=== PATIENT | male | born 1960 | race Caucasian/White ===

== ENCOUNTER 2023-02-21 10:43 | Emergency (ER) | payer BC, SELFPAY ==
[2023-02-21 10:45] VITALS: BP 163/92; PULSE 78; RESP 18; TEMP 36.6; O2SAT 96; BMI 26.4
--- NOTE | 2023-02-21 10:51 | EDS_ITS ---
HPI History of Present Illness Chief Complaint: Chest Pain Informant: patient Onset/Context/Timing Onset: Today Activity at onset: gradual Timing: Intermittent Quality: Positive for Tightness and - (Tingling) Location: Substernal, Right Parasternal, Left Parasternal, Right Chest and Left Chest Worsened By: Nothing Relieved By: Nothing Associated Symptoms: Negative for Nausea, Vomiting, Diaphoresis, Dyspnea, Cough, Fever, Lightheadedness, Acid Reflux or Palpitations Narrative Narrative: Patient presents with chest pain that began today. Patient states it began approximately 2 to 3 hours prior to arrival. Patient states he has had intermit tent pain for the past couple days. Patient states he checked his blood pressure while he was at the dentist office and noted that it was high. Patient states he is checked it at home and noted that it was still high. Patient states he made an appointment with a primary care physician for next week. Patient denies any nausea or vomiting. Patient denies any cough or shortness of breath. Patient denies any lightheadedness or dizziness. CVD Risk Factors: Positive for Hypertension; Negative for Diabetes, Hypercholesterolemia, Family History 1' </=55 or Smoking PE Risk Factors: Negative for Recent Travel/Surgery, Recent Immobilization, Prior DVT or PE or Cancer PFSH PFSH Medical History no medical history no medical history Home Medications NK 02/21/23 [History Last Taken Unknown] Allergy/AdvReac Type Severity Reaction Status Date / Time No Known Allergies Allergy Verified 02/21/23 10:44 Surgical History no surgical history no surgical history Social History Smoking Status: Never smoker ROS ROS ED Constitutional Constitutional ED: Denies chills or fever(s) Eyes Eyes: Denies blurry vision or change in vision ENT ENT ED: Denies rhinorrhea or sore throat Cardiovascular Cardiovascular: Denies chest pain or palpitations Respiratory/Chest Respiratory/Chest: Denies cough or dyspnea Gastrointestinal Gastrointestinal: Denies nausea or vomiting Genitourinary Genitourinary ED: Denies dysuria or hematuria Musculoskeletal Musculoskeletal: Denies back pain or neck pain Integumentary Denies abscess or rash Neurologic Neurologic: Denies headache(s) or weakness Allergic/Immunologic Allergic/Immunologic ED: Denies mouth swelling or urticaria EXAM Physical Exam Const Vital Signs: 02/21/23 10:45 02/21/23 10:50 02/21/23 11:11 Temperature 98 F Temperature Source Temporal Pulse Rate 78 Respiratory Rate 18 Respiratory Effort Normal Non-Labored Blood Pressure 163/92 H Blood Pressure Mean 115 Pulse Ox 96 Oxygen Delivery Method Room Air Room Air 02/21/23 11:50 02/21/23 12:00 02/21/23 13:00 Temperature Temperature Source Pulse Rate 72 64 65 Respiratory Rate 17 16 17 Respiratory Effort Blood Pressure 140/87 H 137/76 H 140/77 H Blood Pressure Mean 104 96 98 Pulse Ox 94 96 94 Oxygen Delivery Method Room Air Room Air Room Air Positive well nourished, well developed and obese General Appearance ED: well developed and NAD Nutritional Appearance: obese HEENT Reports moist mucous membranes Neck supple and no JVD Resp normal respiratory effort and clear to auscultation bilaterally Cardio regular rate and regular rhythm GI soft to palpation, non-tender and non-distended Extremity normal to inspection General Extremety ED: Negative for edema or tenderness General Extremity: Negative for edema Neuro oriented x3, CN's II-XII intact bilaterally and no sensory deficits noted Sensorium / Orientation: awake Motor Exam: strength 5/5 throughout Psych mental status grossly normal Heart Score History: Slightly/Non-Suspicious ECG: Normal Age: >45 - <65 years Risk Factors: 1 or 2 Risk Factors Troponin: </= Normal Limit Score: 2 MDM MDM MDM Narrative Medical decision making narrative: Differential diagnosis includes cardiac dysrhythmia, cardiac ischemia, pneumonia, pneumothorax, hypertensive urgency, electrolyte abnormality, and anemia. Patient has a Wells score of 0. Patient has no PE risk factors. Therefore, I do not feel this is from a pulmonary embolism. EKG will be obtained to assess for cardiac dysrhythmia and cardiac ischemia. Chest x-ray will be obtained to assess for pneumonia and pneumothorax. CBC will be obtained to assess for leukocytosis and anemia. Basic metabolic profile will be obtained to assess for electrolyte abnormality and renal function. High-sensitivity troponin will be obtained to assess for cardiac ischemia. 2-hour repeat high- sensitivity troponin will be obtained to assess for ongoing cardiac ischemia. Lab Data Attestation: I reviewed the patient's lab results. Lab results narrative: CBC was reviewed and was within normal limits. Basic metabolic profile was reviewed and was essentially within normal limits. Initial high-sensitivity troponin was reviewed and was normal at 7. 2-hour repeat high-sensitivity troponin was reviewed and was normal at 5. Labs: Laboratory Results - last 24 hr 02/21/23 02/21/23 11:00 13:05 WBC 6.9 RBC 4.68 Hgb 16.1 Hct 46.1 MCV 98.5 H MCH 34.4 H MCHC 34.9 RDW Std Deviation 43.7 RDW Coeff of Claudia 12.1 Plt Count 203 MPV 10.5 Immature Gran % (Auto) 1.000 H Neut % (Auto) 63.3 Lymph % (Auto) 25.8 Wharton % (Auto) 7.3 Eos % (Auto) 1.6 Baso % (Auto) 1.0 Absolute Neuts (auto) 4.4 Absolute Lymphs (auto) 1.79 Nucleated RBC % 0 Sodium 140 Potassium 3.8 Chloride 110 H Carbon Dioxide 28.0 Anion Gap 2 L BUN 20 H Creatinine 1.00 Estim Creat Clear Calc 84.34 Est GFR (MDRD) Af Amer 97 Est GFR (MDRD) Non-Af 80 BUN/Creatinine Ratio 20.0 Glucose 146 H Calcium 9.1 Troponin I High Sens 7 5 Radiography Chest X-Ray - ED: 1 View, Read by ED Physician, Read by Radiologist and No Acute Disease Diagnostic Testing: Clinical Impression(s) from Imaging Studies Chest X-Ray 02/21/23 11:17 IMPRESSION: No radiographic evidence of acute cardiopulmonary disease. Electronically Signed: Iglesia De León MD at 11:32 EST , Portable 1 view chest x-ray was obtained. On my independent interpretation, lung bryant are clear. There is normal cardiac silhouette. Bony thorax is normal. There is no acute process noted. Radiologist also interpreted the x- ray and agrees. EKG Initial EKG: Attestation: I personally reviewed and interpreted this EKG as follows: Interpretation: Sinus Rhythm (80) and No Acute Injury Pattern Comments: EKG was obtained. On my independent interpretation, it showed a normal sinus rhythm with a rate of 80. TN interval, QRS interval, and QTc in tervals were all normal. Sanger was normal. There are no acute ST or T wave changes. Prior EKG tracings: not available for review Prior: No Prior Treatment and Re-Evaluation :: Patient was given aspirin here. Patient's blood pressure improved to 140/77. Patient is feeling better on reevaluation. Patient was advised of his findings. Patient has a HEART score of 2. Patient was advised that this is low risk for acute cardiac event. Patient was instructed to continue to monitor his blood pressures at home. Patient was instructed to follow-up with his primary care physician as scheduled. Patient was instructed that he may need further testing as an outpatient. Patient understands and is agreeable with the plan. All questions were answered. Discharge Plan Triage Chief Complaint: Chest Pain ED Provider: Chilo Ordaz Dx/Rx/DC Orders Clinical Impression: Blood pressure elevated without history of HTN, Chest pain Instructions: ED Chest Pain, Uncertain Cause Prescriptions: No Action NK Primary Care Provider: Dianne Troncoso Referrals: Dianne Troncoso MD [Primary Care Provider] - Keep Jeri appointment Activity Restrictions/Additional Instructions: Keep a log of your blood pressures and take that with you with your follow-up appointment. Disposition Disposition: Home, Self Care
--- NOTE | 2023-02-21 11:11 | ED.RN ---
NO OLD EKG
[2023-02-21] MEDS: Aspirin 81 MG TAB.CHEW 324 MG PO (11:14)
--- NOTE | 2023-02-21 11:17 | RAD_ITS ---
INDICATION: chest pain EXAMINATION/TECHNIQUE: X-RAY - XR Chest 1 View COMPARISON: No relevant prior comparison study available FINDINGS: LINES/DEVICES: None. LUNGS: No consolidation, edema or effusion. No pneumothorax. MEDIASTINUM AND CARDIOVASCULAR STRUCTURES: Cardiac silhouette not enlarged. Central airways and mediastinal contour are unremarkable. BONES AND SOFT TISSUES: Calcification adjacent to the right humeral head consistent with calcific tendinitis of the right shoulder. RAD/Chest 1 View (Portable) IMPRESSION: No radiographic evidence of acute cardiopulmonary disease. Electronically Signed: Iglesia De León MD at 11:32 EST ,
[2023-02-21 11:20] LABS: Absolute Lymphocyte Count 1.79 X10^3/uL (0.83-4.51); Absolute Neutrophil Count 4.4 X10^3/uL (2.0-7.7); Basophil# 0.07 X10^3/uL; Eosinophil# 0.11 X10^3/uL; Eosinophils% 1.6 % (0-5); Hematocrit 46.1 % (40-54); Hemoglobin 16.1 g/dL (13.0-16.5); Lymphocyte # 1.79 X10^3/ul (0.83-4.51); Lymphocyte % 25.8 % (19-41); Mean Corp Hgb Conc 34.9 g/dL (32-36); Mean Corpuscular Hgb 34.4 pg (27.0-32.0); Mean Corpuscular Volume 98.5 fL (80-94); Mean Platelet Vol. 10.5 fl (6.2-12.0); Monocyte# 0.51 X10^3/uL; Monocyte% 7.3 % (0-10); NRBC Flagged by Analyzer 0 % (0-5); Neutrophil # 4.39 X10^3/uL (2.7-7.7); Neutrophil % 63.3 % (47-70); Platelet Count 203 K/mm3 (150-450); RBC Distribution Width CV 12.1 % (11.6-14.6); RBC Distribution Width SD 43.7 fl (35.1-43.9); Red Blood Count 4.68 M/mm3 (4.6-6.2); White Blood Count 6.9 K/mm3 (4.4-11.0)
[2023-02-21 11:34] LABS: Anion Gap 2 (5-15); BUN 20 mg/dL (7-18); Calcium,Total 9.1 mg/dL (8.5-10.1); Chloride 110 mmol/L (98-107); EST Glomerular Filtration Rate 80 mL/min (>60); Est Glom Filt Rate - Afr Amer 97 mL/min (>60); Estimated Creatinine Clearance 84.34 ml/min; Glucose 146 mg/dL (74-106); Potassium 3.8 mmol/L (3.5-5.1); Sodium Level 140 mmol/L (136-145); Troponin-I HS (w/2H Reflex) 7 pg/mL (3.0-78.0)
[2023-02-21 11:50] VITALS: BP 140/87; PULSE 72; RESP 17; O2SAT 94
[2023-02-21 12:00] VITALS: BP 137/76; PULSE 64; RESP 16; O2SAT 96
[2023-02-21 13:00] VITALS: BP 140/77; PULSE 65; RESP 17; O2SAT 94
[2023-02-21 13:17] LABS: Reflex Troponin-HS? (from REC) Y
[2023-02-21 13:54] LABS: Troponin-I HS 5 pg/mL (3.0-78.0)
[2023-02-21 14:00] VITALS: RESP 18
== END 2023-02-21 14:19 | disposition home or self-care (01) ==
PROVIDERS: Emergency Provider Emergency Medicine; PCP Family Medicine; Visit Provider Emergency Medicine
DX: R03.0 Elevated blood-pressure reading, without diagnosis of hypertension (principal); R07.9 Chest pain, unspecified; E66.9 Obesity, unspecified
CPT/HCPCS: 71045; 80048; 84484; 85025; 93005; 99284; A4216

== ENCOUNTER → 2023-04-19 | Outpatient (CLI) | payer BC, SELFPAY ==
--- NOTE | 2023-04-19 08:47 | ECHOD_ITS ---
Reason For Study: HTN, Family hx of valve replacement Procedure This was a 2D Doppler, Color Flow transthoracic echocardiogram. Exam performed in department. Left Ventricle Normal LV size. Left ventricular systolic function is normal. The estimated ejection fraction is 60 %. Stage 1 diastolic dysfunction. No regional wall motion abnormalities noted. Right Ventricle Normal RV size. Normal systolic function. Atria Normal left atrium. Normal right atrium. Mitral Valve Normal mitral valve. Tricuspid Valve Normal tricuspid valve. Aortic Valve Trisinus/trileaflet aortic valve. Mild focal aortic valve thickening. Pulmonic Valve Normal pulmonic valve. Great Vessels Normal aortic root. The pulmonary artery is normal size. Normal inferior vena cava. Pericardium/Pleural No pericardial effusion. MMode/2D Measurements & Calculations LVIDd: 4.3 cm IVSd: 1.1 cm LVOT diam: 2.2 cm LVIDs: 1.9 cm LVPWd: 1.1 cm LVOT area: 3.9 cm2 RVDd: 3.5 cm FS: 55.3 % Ao root diam: 3.3 cm LAV(MOD-bp): 35.8 ml LVAd ap4: 31.6 cm2 LAV(MOD-bp) Indexed: 16.8 ml/m2 LVLd ap4: 8.6 cm LAV(MOD-sp2): 40.0 ml EDV(MOD-sp4): 95.4 ml LAV(MOD-sp4): 27.1 ml EDV(sp4-el): 98.7 ml LVAs ap4: 17.3 cm2 LVLs ap4: 7.7 cm ESV(MOD-sp4): 34.6 ml ESV(sp4-el): 33.1 ml EF(MOD-sp4): 63.8 % EF(sp4-el): 66.5 % LVAd ap2: 28.7 cm2 SV(MOD-sp4): 60.8 ml SV(MOD-sp2): 46.7 ml LVLd ap2: 8.7 cm EDV(MOD-sp2): 79.3 ml EDV(sp2-el): 79.9 ml LVAs ap2: 16.6 cm2 LVLs ap2: 7.4 cm ESV(MOD-sp2): 32.5 ml ESV(sp2-el): 31.8 ml EF(MOD-sp2): 58.9 % SV(sp4-el): 65.6 ml LA dimension(2D): 3.5 cm LA A4 area: 12.2 cm2 RA A4 area: 10.4 cm2 TAPSE: 2.0 cm Time Measurements MV dec time: 0.30 sec Doppler Measurements & Calculations MV E max margarito: 54.0 cm/sec Lat Peak E' Margarito: 8.3 cm/sec Med Peak E' Margarito: 6.1 cm/sec MV A max margarito: 61.3 cm/sec E/E' lat: 6.5 E/E' med: 8.9 MV E/A: 0.88 Ao V2 max: 154.2 cm/sec LV V1 max: 95.6 cm/sec MV dec slope: 177.8 cm/sec2 Ao max P.5 mmHg LV V1 max P.7 mmHg Ao V2 mean: 100.1 cm/sec LV V1 mean P.2 mmHg Ao mean P.6 mmHg LV V1 mean: 70.2 cm/sec Ao V2 VTI: 26.7 cm LV V1 VTI: 20.7 cm AV (velocity ratio): 0.78 ALLAN(I,D): 3.0 cm2 ALLAN(V,D): 2.4 cm2 SV(LVOT): 81.1 ml PA V2 max: 146.9 cm/sec TR max margarito: 235.3 cm/sec PA V2 mean: 92.5 cm/sec TR max P.2 mmHg ECHO/Echo Complete Interpretation Summary Normal LV size. Left ventricular systolic function is normal. The estimated ejection fraction is 60 %. Mild focal aortic valve thickening. Stage 1 diastolic dysfunction. Ordering Physician: Dianne Troncoso Referring Physician: Dianne Troncoso Performed By: Rosalind Boswell RDCS
== END | disposition home or self-care (01) ==
LOC: CVS 08:46
PROVIDERS: PCP Family Medicine; Referring Provider Family Medicine; Visit Provider Family Medicine
DX: I10 Essential (primary) hypertension (principal)
CPT/HCPCS: 93306